=== PATIENT | female | born 1965 | race Caucasian/White ===

== ENCOUNTER → 2016-12-03 | Outpatient (CLI) | payer BC, OTHER ==
[2016-05-20 11:20] VITALS: BP 110/61
[~2016-12-03] MED LIST: ALBUTEROL0.83 MG/ML IH; MIRALAX17 GM/DOSE PO; PRILOSEC 20MG20 MG PO; VALIUM 2MG T2 MG/TAB PO; ZITHROMAX TRI-500 MG PO; ZOFRAN ODT4 MG PO; ZOLOFT25 M1 PO
== END ==
LOC: LAB 08:22
DX: N30.00 Acute cystitis without hematuria (principal)

== ENCOUNTER 2019-01-30 13:30 | Outpatient (RCR) | payer BC, OTHER ==
[2016-05-20 11:20] VITALS: BP 110/61
== END 2019-01-30 14:00 | disposition still patient (30) ==
LOC: OT 13:30
DX: R60.0 Localized edema (principal)

== ENCOUNTER → 2020-10-23 | Outpatient (CLI) | payer BC, OTHER ==
[2016-05-20 11:20] VITALS: BP 110/61
== END ==
LOC: RAD 07:11 → LAB 07:11
DX: N13.30 Unspecified hydronephrosis (principal); N30.20 Other chronic cystitis without hematuria; Q62.5 Duplication of ureter